=== PATIENT | female | born 1990 | race Caucasian/White ===

== ENCOUNTER 2025-04-16 18:56 | Emergency (ER) | payer SELFPAY ==
[2025-04-16] MEDS ORDERED: ONDANSETRON 4 MG/2 ML VIAL ONE ×2 (19:25→20:13)
[2025-04-16] MEDS ORDERED: KETOROLAC 30 MG/ML INJ ONE (19:25)
[2025-04-16 19:34] LABS: Absolute Lymphocytes (CBC) 1.3 K/uL (0.7-4.9); Hematocrit 38.9 % (36.0-45.0); Hemoglobin 13.7 g/dL (12.0-15.0); MCH 35.3 pg (27.0-35.0); MCHC 35.2 g/dL (32.0-36.0); MCV 100.2 fL (80-100); MPV 8.2 fL (7.6-11.3); Nucleated RBC Absolute Count 0.0 (0-0); Nucleated Red Blood Cells % 0.1 % (0-0); RBC Red Blood Cell Count 3.88 M/uL (3.86-4.86); White Blood Count 4.30 thou/uL (4.3-10.9)
[2025-04-16 19:56] LABS: ALT/SGPT 196.0 U/L (13-56); AST/SGOT 388.0 U/L (15-37); Albumin 3.3 g/dL (3.4-5.0); Albumin/Globulin Ratio 0.7 (1.1-1.8); Alkaline Phosphatase 222.0 U/L (45-117); Anion Gap 15.0 mEq/L (5.0-15.0); BUN Blood Urea Nitrogen 6.0 mg/dL (7-18); Bilirubin Indirect, Calculated 0.8 mg/dL (0.2-0.8); Globulin 4.5 g/dL (2.3-3.5); Glucose Level 107.0 mg/dL (74-106); Magnesium 1.7 mg/dL (1.6-2.4); Potassium 4.0 mEq/L (3.5-5.1); Troponin High Sensitivity 3.6 pg/mL (<58.9)
--- NOTE | 2025-04-16 20:12 | RAD REPORT ---
EXAM: Chest Single View HISTORY: 34 years Female CHEST PAIN COMPARISON: No prior exams FINDINGS: LUNGS/PLEURA: The lungs are clear. No pleural effusions or pneumothorax. No pulmonary edema. CARDIAC/MEDIASTINUM: The cardiac silhouette is within normal limits. UPPER ABDOMEN: No significant abnormality. BONES: No acute abnormality. LINES/TUBES/OTHER: N/A IMPRESSION: No evidence of acute cardiopulmonary disease.
[2025-04-16] MEDS ORDERED: ACETAMINOPHEN 500 MG TAB ONE (20:13)
--- NOTE | 2025-04-16 20:37 | EDPHYS ---
Physician Documentation [facility] Name: Idania Carlos Age: 34 yrs Sex: Female : 1990 Arrival Date: 04/16/2025 Time: 18:56 Bed 7 Private MD: ED Physician Edu Paz HPI: 04/16 20:08 This 34 yrs old Female presents to ER via Ambulatory with complaints of Probable cr8 Seizure. 20:08 Patient is a 34-year-old female with a history of alcohol abuse, seizures reported cr8 blockage in her left groin, seizures artery blockage in the left groin comes in the emergency room because she thinks she may have had a seizure today. Reports that she woke up on the floor when her arrived home. She does not remember the event. Reports that she has a history of seizures. Last seizure was over 2 years ago. Denies that she is on any medications for this because she moved to [place]. She also reports pinpoint pain to the left anterior chest wall. Has been going on all day long. Is worse with palpation and movement of the left chest and arm. She does have some right upper quadrant pain where she thinks she fell and hit the sink. On examination there is no evidence of bruising. She states she does not think she broke anything or hurting thing from the fall. She does report she used to drink a bottle of wine daily and then stopped cold turkey 2 days ago. At this time she is neurologically intact since answering questions appropriately in no acute distress.. 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 - Infectious Disease History:: Denies. - Social history:: Smoking status: Patient denies any tobacco usage or history of. ROS: 20:08 Constitutional: as per HPI cr8 Exam: 20:08 Constitutional: This is a well developed, well nourished patient who is awake, alert, cr8 and in no acute distress. Head/Face: Normocephalic, atraumatic. Eyes: Pupils equal round and reactive to light, extra-ocular motions intact. Conjunctiva and sclera are non-icteric and not injected. Cardiovascular: Regular rate and rhythm with a normal S1 and S2. No gallops, murmurs, or rubs. Respiratory: Lungs have equal breath sounds bilaterally, clear to auscultation. No rales, rhonchi or wheezes noted. No increased work of breathing. Abdomen/GI: Soft, minimal tenderness in right upper quadrant , with normal bowel sounds. No distension. No guarding or rebound. Skin: Warm, dry with normal turgor. Normal color with no rashes, no lesions, and no evidence of cellulitis. MS/ Extremity: Pulses equal, no cyanosis. Neurovascular intact. Full, normal range of motion. Neuro: Awake and alert, GCS 15, oriented to person, place, time, and situation. Cranial nerves II-XII grossly intact. Motor strength 5/5 in all extremities. Sensory grossly intact. 20:08 Chest/axilla: Palpation: tenderness, that is mild, of the anterior aspect of left upper chest, 20:08 ECG was reviewed by the Attending Physician. cr8 Vital Signs: 19:09 BP 143 / 108; Pulse 72; Resp 18; Temp 98.2; Pulse Ox 100% ; Weight 81.65 kg; Height 5 cp4 ft. 2 in. ; Pain 8/10; 20:17 BP 117 / 82; Pulse 72; Resp 16; Pulse Ox 100% on R/A; lg3 19:09 Body Mass Index 32.92 (81.65 kg, 157.48 cm) cp4 19:09 Pain Scale: Adult cp4 Shailesh Coma Score: 19:11 Eye Response: spontaneous(4). Motor Response: obeys commands(6). Verbal Response: cp4 oriented(5). Total: 15. 19:29 Eye Response: spontaneous(4). Motor Response: obeys commands(6). Verbal Response: bm8 oriented(5). Total: 15. MDM: 19:12 Medical Screening Exam initiated cr8 20:30 Data reviewed: vital signs, nurses notes, lab test result(s), EKG, radiologic studies, cr8 I have discussed the patient's presentation/case with the attending Emergency Department Physician;. Care significantly affected by the following Social Determinants of Health: Poor access to healthcare and/or lack of insurance, Misuse of alcohol and/or drugs. ED course: Patient reports drinking a bottle of wine a day. Reports stopping suddenly 2 days ago. She wants to stop drinking. She is worried about adverse effects from stopping and is requesting help with some medication. She has no primary care physician to follow-up with so will prescribe short course of Librium.. 20:59 ED course: Patient came in the emergency room for possible seizure/syncope.Given cr8 history, exam and workup, low suspicion for HF, ICH (no trauma, headache), seizure (no witnessed seizure like activity, no postictal period, tongue laceration, bladder incontinence), stroke (no focal neuro deficits), HOCM (no murmur, family history of sudden ), ACS (no anginal pain, EKG unremarkable and pain is reproducible with palpation, pushing against an object and stretching of the chest wall), aortic dissection (no ripping or tearing chest pain, widened mediastinum, pain or proportion), malignant arrhythmia on ekg or any family history of sudden , or GI bleed (stable hgb). Patient also reports pain to the left side of her chest. The pain is reproducible with palpation, with pushing against my arms and stretching of the chest wall. I did order EKG to evaluate for acute coronary syndrome and it was unremarkable. Considered pulmonary embolus for this pain but given the presentation, reproducible pain, pain with range of motion and stretching of the chest wall muscle unlikely be a pulmonary embolus. Also patient's not tachycardic tachypneic or hypoxic. We did a chest x-ray to evaluate for pneumothorax or other emergent condition and there was none found. Unsure if patient actually had a seizure. She had no bowel or bladder incontinence and no tongue biting. Possibly had a syncopal episode. Considered malignant arrhythmia but EKG did not show any evidence of concerning findings. She also had some abdominal wall tenderness from the fall. Considered traumatic intra-abdominal pathology but there is no overlying ecchymosis, no significant tenderness, vital signs are stable so low suspicion of this. Also there is no significant mechanism suggestive of severe traumatic injury. Patient's LFTs were elevated. Considered other causes at this like acute cholecystitis choledocholithiasis but she has a history of alcohol abuse and reports these numbers are better than before. She wanted to be placed on medication to help with her alcohol withdrawal. Went ahead and gave prescription for Librium for the next several days. Advised not to drink while she is taking it is. Considered acute withdrawal or delirium tremens but right now she is not tachycardic hypotensive there is no evidence of tremors on exam and her neurological exam is unremarkable. Patient stable for discharge. Advise follow-up with PCP. Discussed strict return precautions.. 04/16 19:13 Order name: Basic Metabolic Panel; Complete Time: 20:00 cr8 04/16 19:13 Order name: CBC with Diff; Complete Time: 19:52 cr8 04/16 19:13 Order name: LFT's; Complete Time: 20:00 cr8 04/16 19:13 Order name: Magnesium; Complete Time: 20:00 cr8 04/16 19:13 Order name: Troponin HS; Complete Time: 20:00 cr8 04/16 19:13 Order name: XRAY Chest (1 view); Complete Time: 20:18 cr8 04/16 19:13 Order name: EKG; Complete Time: 19:14 cr8 04/16 19:13 Order name: Cardiac monitoring; Complete Time: 19:24 cr8 04/16 19:13 Order name: EKG - Nurse/Tech; Complete Time: 19:24 cr8 04/16 19:13 Order name: IV Saline Lock; Complete Time: 19:24 cr8 EC:08 Rate is 71 beats/min. Rhythm is regular. QRS War is Normal. OK interval is normal. QRS cr8 interval is normal. QT interval is normal. T waves are Inverted in lead V1. Clinical impression: NSR w/ Non-specific ST/T Changes and No evidence of ischemia. Interpreted by me. Administered Medications: 19:26 CANCELLED (states allergicc): [id number] mg IVP once cr8 19:29 Drug: Ondansetron IVP 4 mg IVP once; over 2 minutes Route: IVP; Site: right antecubital;bm8 20:47 Follow up: Response: No adverse reaction lg3 20:16 Drug: Acetaminophen PO 1000 mg PO once Route: PO; bm8 20:47 Follow up: Response: No adverse reaction lg3 20:16 Drug: Ondansetron IVP 4 mg IVP once; over 2 minutes Route: IVP; Site: right antecubital;bm8 20:47 Follow up: Response: No adverse reaction lg3 20:16 Drug: Ketorolac IVP 15 mg IVP once Route: IVP; Site: right antecubital; bm8 20:49 Follow up: Response: No adverse reaction lg3 Disposition: 22:24 Co-signature as Attending Physician, Edu Paz MD I reviewed the patient's care rn provided by the Advanced Practice Provider and agree with the diagnosis and treatment plan. Disposition Summary: 04/16/25 20:37 Discharge Ordered Notes: Location: Home cr8 Condition: Stable cr8 Diagnosis - Abnormal results of liver function studies cr8 - Contusion of abdominal wall cr8 - Chest pain, unspecified cr8 - Alcohol use, unspecified cr8 - Syncope cr8 Followup: cr8 - With: Private Physician - When: - Reason: Further diagnostic work-up, Recheck today's complaints, Continuance of care, Re-evaluation by your physician Followup: cr8 - With: Emergency Department - When: As needed - Reason: Trouble breathing, Worsening of condition Discharge Instructions: - Discharge Summary Sheet cr8 - Contusion cr8 - Chest Wall Pain cr8 - Syncope cr8 - Alcoholic Liver Disease cr8 Forms: - Medication Reconciliation Form cr8 - Patient Portal Instructions cr8 - Leadership Thank You Letter cr8 Prescriptions: - chlordiazepoxide HCl 25 mg Oral capsule - take 1 capsule ORAL route every 8 hours as needed for alcohol withdrawal; 10 cr8 capsule; Refills: 0, Product Selection Permitted Signatures: Dispatcher [employer] EDEdu Mills MD MD rn Able, Lacie, RN RN 3 Cristin Stanton 4 Brant Mcmanus RN RN bm8 Chandra Alexis NP ALMOND BLANCHER OPERATOR cr8 Corrections: (The following items were deleted from the chart) 19:26 19:23 Ketorolac IVP 15 mg IVP once ordered. cr8 cr8
--- NOTE | 2025-04-16 20:37 | ER ---
Nurse's Notes [facility] Name: Idania Carlos Age: 34 yrs Sex: Female : 1990 Arrival Date: 04/16/2025 Time: 18:56 Bed 7 Private MD: Diagnosis: Abnormal results of liver function studies;Contusion of abdominal wall;Chest pain, unspecified;Alcohol use, unspecified;Syncope Presentation: 04/16 19:09 Chief complaint: Patient states: seizure while in the shower. Reports pain to back of cp4 the head and right rib cage. States she does not take seizure meds for the past two years. Coronavirus screen: Client denies travel out of the [place] in the last 14 days. At this time, the client does not indicate any symptoms associated with coronavirus-19. Ebola Screen: Patient negative for fever greater than or equal to 101.5 degrees Fahrenheit, and additional compatible Ebola Virus Disease symptoms Patient denies exposure to infectious person. Patient denies travel to an Ebola-affected area in the 21 days before illness onset. No symptoms or risks identified at this time. Initial Sepsis Screen: Does the patient meet any 2 criteria? No. Patient's initial sepsis screen is negative. Does the patient have a suspected source of infection? No. Patient's initial sepsis screen is negative. Risk Assessment: Do you want to hurt yourself or someone else? Patient reports no desire to harm self or others. Onset of symptoms was April 16, 2025 at 18:45. 19:09 Method Of Arrival: Ambulatory cp4 19:09 Acuity: TRUDY 3 cp4 Triage Assessment: 19:11 General: Appears in no apparent distress. comfortable, Behavior is calm, cooperative, cp4 appropriate for age. Pain: Complains of pain in scalp and right upper quadrant. Neuro: Level of Consciousness is awake, alert, obeys commands, Oriented to person, place, time, situation. SPIRITUAL MINISTER: 19:11 Not cp4 Historical: - Allergies: 19:11 Morphine; cp4 19:11 NSAIDS; cp4 19:11 tramadol; cp4 - PMHx: 19:11 Anxiety; depressive disorder; epilepsy; GI bleeds; cp4 - PSHx: 19:11 Appendectomy; Cholecystectomy; Gastric Bypass; hysterectomy; revision to bypass X3; cp4 spinal fusion X2; - Immunization history:: Adult Immunizations up to date. - Infectious Disease History:: Denies. - Social history:: Smoking status: Patient denies any tobacco usage or history of. Screenin:29 [facility] ED Fall Risk Assessment (Adult) History of falling in the last 3 months, bm8 including since admission No falls in past 3 months (0 pts) Confusion or Disorientation No (0 pts) Intoxicated or Sedated No (0 pts) Impaired Gait No (0 pts) Mobility Assist Device Used No (0 pt) Altered Elimination No (0 pt) Score/Fall Risk Level 0 - 2 = Low Risk Oriented to surroundings, Maintained a safe environment, Educated pt \T\ family on fall prevention, incl call for assistance when getting out of bed, Assessed \T\ reinforced patient's understanding of fall precautions, Hourly rounding (assess needs \T\ fall precautionary measures) done, Used ambulatory aids as needed (educated on \T\ assisted with), Used gait belt as appropriate. Abuse screen: Denies threats or abuse. Nutritional screening: No deficits noted. Tuberculosis screening: No symptoms or risk factors identified. Assessment: 19:29 Reassessment: Patient appears in no apparent distress at this time. Patient and/or bm8 family updated on plan of care and expected duration. Pain level reassessed. Patient is alert, oriented x 3, equal unlabored respirations, skin warm/dry/pink. General: Appears in no apparent distress. comfortable, Behavior is calm, cooperative, appropriate for age. Pain: Complains of pain in abdomen and scalp and right upper quadrant Pain currently is 5 out of 10 on a pain scale. Neuro: No deficits noted. Level of Consciousness is awake, alert, obeys commands, Oriented to person, place, time, situation, Appropriate for age. Musculoskeletal: Circulation, motion, and sensation intact. Capillary refill < 3 seconds, in bilateral fingers. Range of motion: intact in all extremities, Reports pain in abdomen and scalp and right upper quadrant Pain is 7 out of 10 on a pain scale. 20:20 Reassessment: Patient appears in no apparent distress at this time. No changes from lg3 previously documented assessment. Patient and/or family updated on plan of care and expected duration. Pain level reassessed. Patient is alert, oriented x 3, equal unlabored respirations, skin warm/dry/pink. Vital Signs: 19:09 BP 143 / 108; Pulse 72; Resp 18; Temp 98.2; Pulse Ox 100% ; Weight 81.65 kg; Height 5 cp4 ft. 2 in. ; Pain 8/10; 20:17 BP 117 / 82; Pulse 72; Resp 16; Pulse Ox 100% on R/A; lg3 19:09 Body Mass Index 32.92 (81.65 kg, 157.48 cm) cp4 19:09 Pain Scale: Adult cp4 Harrington Coma Score: 19:11 Eye Response: spontaneous(4). Motor Response: obeys commands(6). Verbal Response: cp4 oriented(5). Total: 15. 19:29 Eye Response: spontaneous(4). Motor Response: obeys commands(6). Verbal Response: bm8 oriented(5). Total: 15. ED Course: 18:59 Patient arrived in ED. im 19:01 Chandra Alexis MILLED RICE BROKER is PHCP. cr8 19:11 Triage completed. cp4 19:11 Bailee Juarez, RN is Primary Nurse. lg3 19:11 Arm band placed on right wrist. Patient placed in waiting room. cp4 19:24 Basic Metabolic Panel Sent. ts3 19:24 CBC with Diff Sent. ts3 19:24 LFT's Sent. ts3 19:24 Magnesium Sent. ts3 19:24 Troponin HS Sent. ts3 19:25 Initial lab(s) drawn, by ED staff, sent to lab. Inserted saline lock: 20 gauge in right ts3 antecubital area, using aseptic technique. Blood collected. Flushed with 10 mL NS. 19:29 Patient has correct armband on for positive identification. Bed in low position. Call bm8 light in reach. Side rails up X 1. Seizure precautions initiated. Client placed on continuous cardiac and pulse oximetry monitoring. NIBP monitoring applied. framing specialist on. Pulse ox on. NIBP on. Door closed. Noise minimized. Warm blanket given. Pillow given. Verbal reassurance given. Head of bed elevated. 19:29 No provider procedures requiring assistance completed. Inserted. bm8 19:59 XRAY Chest (1 view) In Process Unspecified. EDMS 20:43 Edu Paz MD is Attending Physician. cr8 20:49 IV discontinued, intact, bleeding controlled, No redness/swelling at site. Pressure lg3 dressing applied. Administered Medications: 19:26 CANCELLED (states allergicc): [id number] mg IVP once cr8 19:29 Drug: Ondansetron IVP 4 mg IVP once; over 2 minutes Route: IVP; Site: right antecubital;bm8 20:47 Follow up: Response: No adverse reaction lg3 20:16 Drug: Acetaminophen PO 1000 mg PO once Route: PO; bm8 20:47 Follow up: Response: No adverse reaction lg3 20:16 Drug: Ondansetron IVP 4 mg IVP once; over 2 minutes Route: IVP; Site: right antecubital;bm8 20:47 Follow up: Response: No adverse reaction lg3 20:16 Drug: Ketorolac IVP 15 mg IVP once Route: IVP; Site: right antecubital; bm8 20:49 Follow up: Response: No adverse reaction lg3 Medication: 19:29 VIS not applicable for this client. bm8 Outcome: 20:37 Discharge ordered by . cr8 20:49 Discharged to home ambulatory, with significant other, lg3 20:49 Condition: stable 20:49 Discharge instructions given to patient, Instructed on discharge instructions, follow up and referral plans. medication usage, Demonstrated understanding of instructions, follow-up care, medications, Prescriptions given X 1, 20:49 Patient left the ED. lg3 Signatures: Dispatcher [employer] EDMS Bailee Juarez RN RN lg3 Marychuy Kearns Christina cp4 Brant Mcmanus RN RN bm8 Chandra Alexis NP MILLED RICE BROKER cr8 Emely Ramirez 3
[2025-04-16 21:06] VITALS: TEMP 98.2; O2SAT 100
[2025-04-16 21:11] VITALS: BP 117/82
== END 2025-04-16 20:49 | disposition home or self-care (01) ==
LOC: ER 18:56
DX: R07.9 Chest pain, unspecified (principal); S30.1XXA Contusion of abdominal wall, initial encounter; R94.5 Abnormal results of liver function studies; R55 Syncope and collapse; F10.90 Alcohol use, unspecified, uncomplicated
CPT/HCPCS: 36415; 71045; 80048; 80076; 83735; 84484; 85025; 93005; 96374; 96375; 99285; J2405